=== PATIENT | male | born 1965 | race Caucasian/White ===

== ENCOUNTER 2021-06-01 06:46 | Day surgery (SDC) | payer BC ==
[2021-05-30 10:16] VITALS: BMI 26.9
[~2021-06-01 06:46] MED LIST: LACTATED RINGERS 1,000 ML IV SCH; LIDOCAINE 1% (10MG/ML) FOR IV START INTRADERMA PRN
[2021-06-01 07:16] VITALS: TEMP 97.6
[2021-06-01] MEDS ORDERED: PROPOFOL 10 MG/ML 20 ML VIAL IV ONE (07:32)
[2021-06-01] MEDS ORDERED: LIDOCAINE 1% INJ 10MG/ML (20 ML MDV) ONE (07:32)
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
--- NOTE | 2021-06-01 07:50 | P.PCN ---
Date of Procedure: 06/01/21 Preoperative Diagnosis: Screening for colon cancer Postoperative Diagnosis: Diverticulosis Internal hemorrhoids Procedure(s) Performed: Colonoscopy Anesthesia: MAC Surgeon: Souleymane Soto Pathology: none sent Condition: stable Disposition: same day Indications for Procedure: 55-year-old male presents today for screening colonoscopy. No history of previous colonoscopy. No blood in his stool. Denies any history of colon cancer. Operative Findings: Diverticulosis Internal hemorrhoids Description of Procedure: The patient was brought to the endoscopy suite and placed in left lateral decubitus position. Adequate sedation was achieved using conscious sedation. A digital rectal exam was performed and internal hemorrhoids were palpated. An endoscope was then placed in the rectum and advanced to the cecum as identified by landmarks including the appendiceal orifice and the ileocecal valve. The prep was good. The colonoscope was slowly withdrawn, examining for any mucosal abnormalities. The cecum, ascending, transverse, descending and sigmoid colon were visualized adequately. There were no obvious neoplastic lesions noted throughout the colon. There were no obvious polyps noted throughout the colon. Mild diverticulosis was noted in the sigmoid colon. Retroflexion was performed in the rectum and internal hemorrhoids were visible. Excess air was removed, the colonoscope withdrawn and the procedure terminated. The patient was then transferred to the recovery unit in stable condition. Repeat colonoscopy should be performed in 8-10 years.
[2021-06-01 08:08] VITALS: BP 154/89; PULSE 71; RESP 16
== END 2021-06-01 08:48 | disposition home or self-care (01) ==
LOC: ORWHC2ENDO 06:46
PROVIDERS: ATTEND Surgery
DX: Z12.11 Encounter for screening for malignant neoplasm of colon (principal); K57.30 Diverticulosis of large intestine without perforation or abscess without bleeding; K64.8 Other hemorrhoids; E78.5 Hyperlipidemia, unspecified; Z87.891 Personal history of nicotine dependence
CPT/HCPCS: 45378; J2001; J2704

== ENCOUNTER 2023-12-29 17:17 | Emergency (ER) | payer BC ==
[2023-12-29 17:24] VITALS: TEMP 98.2
[2023-12-29] MEDS: methylPREDNISolone SOD SUCCI 125 MG/2 ML VIAL IM ONE (18:46)
[2023-12-29] MEDS: KETOROLAC 15 MG/ML 1 ML VIAL IM STA (18:46)
[2023-12-29] MEDS: ORPHENADRINE 30 MG/ML 2 ML VIAL IM STA (18:46)
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
[2023-12-29 19:37] VITALS: BP 114/71; PULSE 86; RESP 16
== END 2023-12-29 19:34 | disposition home or self-care (01) ==
LOC: EC 17:17
DX: M25.562 Pain in left knee (principal); Z87.891 Personal history of nicotine dependence
CPT/HCPCS: 99283; 96372 ×3; J2360; J1885; J2919